=== PATIENT | female | born 1960 | race Caucasian/White ===

== ENCOUNTER 2023-12-20 13:41 | Inpatient (IN) | payer OTHER, SELFPAY ==
[2023-12-20] VITALS (10 sets, daily range): BP systolic 102–178; BP diastolic 54–102; PULSE 81–112; RESP 12–23; TEMP 36.7–36.9; O2SAT 94–99; BMI 36.8; BMI 37.8
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
[2023-12-20] MEDS: Ondansetron 4 MG/2 ML Vial IV (15:15)
[2023-12-20] MEDS: fentaNYL 100 MCG/2 ML Ampul 50 MCG IV (15:15)
[2023-12-20 15:19] LABS: Absolute Lymphocyte Count 1.53 X10^3/uL (0.83-4.51); Absolute Neutrophil Count 9.3 X10^3/uL (2.0-7.7); Basophil# 0.03 X10^3/uL; Basophil% 0.3 % (0-1); Eosinophils% 0.9 % (0-5); Hematocrit 38.8 % (37-47); Hemoglobin 12.7 g/dL (12.0-15.0); Lymphocyte # 1.53 X10^3/ul (0.83-4.51); Lymphocyte % 13.1 % (19-41); Mean Corp Hgb Conc 32.7 g/dL (32-36); Mean Corpuscular Hgb 28.6 pg (27.0-32.0); Mean Corpuscular Volume 87.4 fL (81-99); Mean Platelet Vol. 9.1 fl (6.2-12.0); Monocyte% 5.2 % (0-10); NRBC Flagged by Analyzer 0 % (0-5); Neutrophil # 9.33 X10^3/uL (2.7-7.7); Neutrophil % 80.1 % (47-70); Platelet Count 219 K/mm3 (150-450); RBC Distribution Width CV 14.5 % (11.6-14.6); RBC Distribution Width SD 45.7 fl (35.1-43.9); Red Blood Count 4.44 M/mm3 (4.2-5.4); White Blood Count 11.6 K/mm3 (4.4-11.0)
[2023-12-20 15:30] LABS: Anion Gap 5 (5-15); BUN 12 mg/dL (7-18); BUN/Creat Ratio 14.3 RATIO (10-20); Calcium,Total 9.4 mg/dL (8.5-10.1); Chloride 108 mmol/L (98-107); Creatinine, Serum 0.84 mg/dL (0.55-1.02); EST Glomerular Filtration Rate 73 mL/min (>60); Est Glom Filt Rate - Afr Amer 88 mL/min (>60); Estimated Creatinine Clearance 64.83 ml/min; Glucose 109 mg/dL (74-106); Potassium 3.9 mmol/L (3.5-5.1); Sodium Level 142 mmol/L (136-145)
[2023-12-20 15:54] LABS: International Normalized Ratio 1.1; Prothrombin Time (Protime)PT. 13.7 SECONDS (11.7-14.9)
[2023-12-20 15:55] LABS: Partial Thromboplast Time 29.2 Seconds (24.1-36.2)
[2023-12-20] MEDS: oxyCODONE 5 MG Tablet PO (16:55)
--- NOTE | 2023-12-20 17:42 | CT_ITS ---
CT LEFT LOWER EXTREMITY WITH 3-D IMAGING CLINICAL INDICATION: tibial plateau fx TECHNIQUE: Axial CT images of the LEFT lower extremity was performed IV contrast material. Coronal and sagittal reformats were provided. The protocol utilizes one or more of the following dose reduction techniques: automated exposure control, adjustment of mA and/or kV according to patient size,and/or use of iterative reconstruction technique. RADIATION DOSAGE (If Supplied By Facility): CTDIvol = ( 15.35 ) mGy, DLP = ( 430.52 ) mGycm COMPARISON: FINDINGS: Bones: There is an acute depressed fracture of the anterior lateral tibial plateau with more severe depression of the posterior tibial plateau with intra-articular extension of the fracture line. There is also a nondisplaced intra-articular fracture of the tibial spine No lytic or blastic osseous masses. Soft Tissues: There is hemorrhagic effusion noted within the suprapatella bursa. The superficial soft tissues are unremarkable without evidence of edema, hematoma, or foreign body. CT/Extremity Lower without Contra IMPRESSION: Acute depressed intra-articular fractures of the anterior and posterior lateral tibial plateaus with nondisplaced fracture of the tibial spine. Electronically Signed: Kar Isbell MD at 20:27 EDT ,
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
[2023-12-20] MEDS: Acetaminophen 500 MG Tablet 1000 MG PO (22:06)
[2023-12-20] MEDS: 0.9% Saline Lock 10 ML Syringe IV (22:06)
[2023-12-21] MEDS: oxyCODONE 5 MG Tablet PO ×2 (01:40→16:51)
[2023-12-21 01:45] VITALS: BP 143/71; PULSE 89; RESP 18; TEMP 36.7; O2SAT 94
[2023-12-21 05:20] VITALS: BP 131/69; PULSE 86; RESP 16; TEMP 36.6; O2SAT 96
[2023-12-21] MEDS: Acetaminophen 500 MG Tablet 1000 MG PO ×2 (05:23→16:51)
[2023-12-21] MEDS: Enoxaparin 40 MG/0.4 ML Syringe SC (05:23)
[2023-12-21 06:43] LABS: Absolute Lymphocyte Count 1.63 X10^3/uL (0.83-4.51); Absolute Neutrophil Count 4.8 X10^3/uL (2.0-7.7); Basophil# 0.03 X10^3/uL; Basophil% 0.4 % (0-1); Eosinophils% 1.4 % (0-5); Hematocrit 34.2 % (37-47); Hemoglobin 11.2 g/dL (12.0-15.0); Lymphocyte # 1.63 X10^3/ul (0.83-4.51); Lymphocyte % 22.8 % (19-41); Mean Corp Hgb Conc 32.7 g/dL (32-36); Mean Corpuscular Hgb 28.8 pg (27.0-32.0); Mean Corpuscular Volume 87.9 fL (81-99); Mean Platelet Vol. 9.6 fl (6.2-12.0); Monocyte# 0.56 X10^3/uL; Monocyte% 7.8 % (0-10); NRBC Flagged by Analyzer 0 % (0-5); Neutrophil # 4.82 X10^3/uL (2.7-7.7); Neutrophil % 67.5 % (47-70); Platelet Count 202 K/mm3 (150-450); RBC Distribution Width CV 14.8 % (11.6-14.6); Red Blood Count 3.89 M/mm3 (4.2-5.4); White Blood Count 7.2 K/mm3 (4.4-11.0)
[2023-12-21 06:51] VITALS: O2SAT 94
[2023-12-21 07:06] LABS: Anion Gap 5 (5-15); BUN 12 mg/dL (7-18); BUN/Creat Ratio 16.6 RATIO (10-20); Calcium,Total 8.8 mg/dL (8.5-10.1); Chloride 109 mmol/L (98-107); Creatinine, Serum 0.72 mg/dL (0.55-1.02); EST Glomerular Filtration Rate 86 mL/min (>60); Est Glom Filt Rate - Afr Amer 104 mL/min (>60); Estimated Creatinine Clearance 69.17 ml/min; Glucose 118 mg/dL (74-106); Potassium 3.9 mmol/L (3.5-5.1); Sodium Level 141 mmol/L (136-145)
[2023-12-21 11:20] VITALS: BP 136/66; PULSE 84; RESP 18; TEMP 36.4; O2SAT 96
[2023-12-21] MEDS: Pantoprazole Sodium 40 MG Tablet PO (11:23)
[2023-12-21] MEDS: Ketorolac 15 MG/ML Vial IV ×2 (11:27→21:29)
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
--- NOTE | 2023-12-21 14:39 | CASEMGMT ---
Patient did not do well with Physical Therapy and SNF is recommended. SW met with patient, her step daughter and granddaughter. Introduced self and role at [facility]. SW explained recommendation for SNF. Patient is agreeable, but not excited about the idea. SW provided patient with a list of [facility] facility providers including quality and resource use data and consistent with patient?s preferred geographic region, medical needs, and insurance network were provided from the CarePort Guide. SW asked that they pick 3-4 facilities and SW will take care of checking with those facilities to see if they can take patient. Mayra Snowden AUTOMATIC DEVELOPER RIYA
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
--- NOTE | 2023-12-21 15:07 | CASEMGMT ---
SW received a call from patient's granddaughter Claudia asking SW to come back to the room. SW went to patient's room. Their two choices for now are [facility] Should neither of those places work they will pick facilities outside of [place]. They were both adamant no [facility]. SW let them know SW will work on referral and once we have a response will let them know. SW did let them know SW will likely not hear back from [facility] today. SW asked Isabelle to please send a referral to [facility]. Mayra Snowden HSE COORDINATOR RIYA
--- NOTE | 2023-12-21 15:11 | CASEMGMT ---
Addendum entered by Isabelle Tello 12/23/23 08:13: Updates sent to [facility]. Precert remains pending. Isabelle Tello DC Planning Asst. Addendum entered by Isabelle Tello 12/22/23 13:53: [facility] has accepted. Updates sent with requested to submit precert. SW updated. Isabelle Tello DC Planning Asst. Original Note: Discharge Planning Referral sent via [facility]Port to [facility]. Isabelle Tello DC Planning Asst.
--- NOTE | 2023-12-21 16:29 | CASEMGMT ---
Met with patient to complete LOOMIS form. LOOMIS form explained to patient who voiced understanding and signed form. Original form placed in pt?s chart and copy provided to patient. Isabelle Tello, Discharge Planning Asst
[2023-12-21 17:00] VITALS: BP 147/99; PULSE 86; RESP 16; TEMP 36.9; O2SAT 97
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
[2023-12-21 21:00] VITALS: BP 146/69; PULSE 84; RESP 16; TEMP 36.2; O2SAT 94
[2023-12-21] MEDS: 0.9% Saline Lock 10 ML Syringe IV (21:30)
[2023-12-22 05:00] VITALS: BP 151/85; PULSE 77; RESP 18; TEMP 36.2; O2SAT 97
[2023-12-22] MEDS: Ketorolac 15 MG/ML Vial IV ×2 (05:46→17:03)
[2023-12-22] MEDS: Enoxaparin 40 MG/0.4 ML Syringe SC (05:46)
[2023-12-22] MEDS: 0.9% Saline Lock 10 ML Syringe IV ×2 (05:47→17:04)
[2023-12-22 08:15] VITALS: BP 146/58; PULSE 71; RESP 18; TEMP 36.6; O2SAT 97
[2023-12-22] MEDS: Pantoprazole Sodium 40 MG Tablet PO (10:09)
[2023-12-22] MEDS: Senna/Docusate Sodium 1 Tablet 2 TABLET PO (10:09)
[2023-12-22] MEDS: Acetaminophen 500 MG Tablet 1000 MG PO ×2 (14:59→22:34)
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
--- NOTE | 2023-12-22 15:37 | DCINST_ITS ---
Discharge Instructions Diet Discharge Diet: No restrictions Activity Discharge Activity: May Shower Weight Bearing Status: Toe touch weight bearing (left lower extremity with knee immobilizer at all times) Dressing / Incision Call your doctor if you observe: Fever of 101 or Higher, Dizziness, Swelling in the ankles, Chest pain, Increased palpitations (irregular heartbeat) and Calf discomfort Additional Dressing/Incision Instructions:: ok to remove Knee immobilizer for hygiene Follow Up Care When: [facility] Wednesday, December 27, 2023 Test Results: Test results from this visit will be discussed in further detail at your follow- up appointment, if applicable. Discharge Plan Admission Admit Date/Time: 12/24/23 09:48 Attending Provider: Flavio De La Rosa Primary Care Provider: Care PhysicianChantel Primary Discharge Orders/Prescriptions Prescriptions: New sennosides-docusate sodium [Stimulant Laxative Plus] 8.6-50 mg Tablet 2 tab PO BID Qty: 14 0RF enoxaparin 40 mg/0.4 mL Syringe 40 mg subcut DAILY@0600 Qty: 4 2RF oxycodone 5 mg Tablet 5 mg PO .q4-6 prn PRN (Reason: Pain Score 4-10) 7 Days Qty: 28 0RF acetaminophen 500 mg Tablet 1,000 mg PO Q8 Qty: 180 0RF enoxaparin [Lovenox] 40 mg/0.4 mL syringe 40 mg subcut DAILY 42 Days Qty: 16.8 0RF Continued omeprazole magnesium [Prilosec OTC] 20 mg tablet,delayed release (DR/EC) 20 mg PO DAILY Referrals / Follow Up: Care Physician,No Primary [Primary Care Provider] -
[2023-12-22 17:05] VITALS: BP 156/76; PULSE 78; RESP 16; TEMP 37; O2SAT 100
[2023-12-22 22:23] VITALS: BP 144/68; PULSE 80; RESP 16; TEMP 36.6; O2SAT 96
[2023-12-23 03:17] VITALS: BP 145/83; PULSE 87; RESP 16; TEMP 36.4; O2SAT 100
[2023-12-23] MEDS: Enoxaparin 40 MG/0.4 ML Syringe SC (05:50)
[2023-12-23] MEDS: Acetaminophen 500 MG Tablet 1000 MG PO ×3 (05:50→20:54)
--- NOTE | 2023-12-23 09:28 | CASEMGMT ---
Addendum entered by Mayra Snowden 12/23/23 14:22: SW completed a PASRR in [employer] system. Mayra RITTER Original Note: SW spoke with patient and her granddaughter. SW let them know [facility] is able to take patient. Currently we are waiting on insurance to approve patient. Plan: d/c to [facility] pending insurance approval. Mayra RITTER
[2023-12-23] MEDS: Pantoprazole Sodium 40 MG Tablet PO (09:39)
[2023-12-23] MEDS: Senna/Docusate Sodium 1 Tablet 2 TABLET PO ×2 (09:39→20:54)
[2023-12-23 09:41] VITALS: BP 148/86; PULSE 82; RESP 16; TEMP 36.3; O2SAT 100
[2023-12-23] MEDS: 0.9% Saline Lock 10 ML Syringe IV (11:13)
[2023-12-23] MEDS: Ketorolac 15 MG/ML Vial IV (11:13)
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
[2023-12-23 14:23] VITALS: BP 136/71; PULSE 75; RESP 16; TEMP 36.8; O2SAT 98
--- NOTE | 2023-12-23 14:36 | CASEMGMT ---
MARBELLA sent the discharge med list to [facility] [place]. Still pending insurance approval. Mayra Snowden CREAM SEPARATOR OPERATOR RIYA
[2023-12-23 20:45] VITALS: BP 160/72; PULSE 73; RESP 16; TEMP 36.9; O2SAT 99
[2023-12-23] MEDS: oxyCODONE 5 MG Tablet PO (20:54)
[2023-12-23] MEDS: Ondansetron 4 MG/2 ML Vial IV (20:55)
[2023-12-24] MEDS: Ondansetron 4 MG/2 ML Vial IV ×3 (03:12→21:43)
[2023-12-24] MEDS: Ketorolac 15 MG/ML Vial IV (03:13)
[2023-12-24 03:30] VITALS: BP 139/80; PULSE 90; RESP 16; TEMP 36.7; O2SAT 96
[2023-12-24] MEDS: Enoxaparin 40 MG/0.4 ML Syringe SC (05:59)
[2023-12-24] MEDS: 0.9% Saline Lock 10 ML Syringe IV ×3 (06:00→21:44)
[2023-12-24 08:17] VITALS: BP 138/81; PULSE 90; RESP 18; TEMP 36.7; O2SAT 95
[2023-12-24] MEDS: Acetaminophen 650 MG/20 ML UDC 1000 MG PO ×3 (08:39→21:43)
[2023-12-24] MEDS: Pantoprazole Sodium 40 MG Tablet PO (08:39)
[2023-12-24] MEDS: Polyethylene Glycol 3350 17 GM PACKET PO (08:40)
[2023-12-24] MEDS: Lactated Ringers 1,000 ML 125 ML IV (08:40)
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
--- NOTE | 2023-12-24 11:21 | CASEMGMT ---
MARBELLA sent updates to [facility] via [employer]. MARBELLA also let [facility] know that the physician said he is going to do surgery on Tuesday since the patient is still at [facility]. Mayra RITTER
--- NOTE | 2023-12-24 12:04 | CASEMGMT ---
RN CM notified by Orthopedic Surgeon he will plan to change status of patient to inpatient and plan for surgery on Tuesday. Notified SW and charge nurse.
[2023-12-24 13:00] VITALS: O2SAT 98
[2023-12-24 13:10] VITALS: BP 119/79; PULSE 88; RESP 18; TEMP 36.7; O2SAT 97
--- NOTE | 2023-12-24 14:06 | NURSING ---
attempt x2 right hand for iv, #20 and #22 unsucessful, charge aware and she is calling supervisor filtration for iv start after she could not get start either after x1 left
[2023-12-24 18:00] VITALS: PULSE 88
[2023-12-24] MEDS: Magnesium Hydroxide 30 ML UDC 15 ML PO (18:31)
[2023-12-24 21:39] VITALS: BP 133/75; PULSE 82; RESP 18; TEMP 37.1; O2SAT 100
[2023-12-25] MEDS: Acetaminophen 650 MG/20 ML UDC 1000 MG PO ×3 (06:05→21:50)
[2023-12-25] MEDS: Enoxaparin 40 MG/0.4 ML Syringe SC (06:05)
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
[2023-12-25 08:22] VITALS: BP 141/63; PULSE 74; RESP 18; TEMP 37.2; O2SAT 97
[2023-12-25 08:26] VITALS: PULSE 70
[2023-12-25] MEDS: Senna/Docusate Sodium 1 Tablet 2 TABLET PO ×2 (08:34→21:50)
[2023-12-25] MEDS: Pantoprazole Sodium 40 MG Tablet PO (08:35)
[2023-12-25] MEDS: Magnesium Hydroxide 30 ML UDC PO (10:21)
[2023-12-25 14:36] VITALS: BP 137/82; PULSE 89; PULSE 90; RESP 18; TEMP 37.5; O2SAT 97
[2023-12-25] MEDS: Ondansetron 4 MG/2 ML Vial IV (21:59)
[2023-12-25] MEDS: 0.9% Saline Lock 10 ML Syringe IV (21:59)
[2023-12-25 22:00] VITALS: BP 138/67; PULSE 78; RESP 18; TEMP 35.8; O2SAT 97
[2023-12-26] VITALS (19 sets, daily range): BP systolic 121–180; BP diastolic 54–102; PULSE 77–136; RESP 16–18; TEMP 35.7–36.9; O2SAT 97–100; BMI 37.8
--- NOTE | 2023-12-26 05:55 | EKG12_ITS ---
Test Reason : AM EKG Blood Pressure : */* mmHG Vent. Rate : 81 BPM Atrial Rate : 81 BPM P-R Int : 142 ms QRS Dur : 76 ms QT Int : 402 ms P-R-T Axes : 44 29 64 degrees QTcB Int : 466 ms Normal sinus rhythm Normal ECG When compared with ECG of 20-Dec-2023 15:14, No significant change was found Confirmed by Joesph Pandya ([id number]), newspaper copy editor ROGER FORRESTER ([id number]) on 12/27/2023 9:26:14 AM Referred By: Flavio De La Rosa Confirmed By: Joesph Pandya
[2023-12-26 06:06] LABS: Absolute Lymphocyte Count 1.26 X10^3/uL (0.83-4.51); Absolute Neutrophil Count 4.8 X10^3/uL (2.0-7.7); Basophil# 0.02 X10^3/uL; Basophil% 0.3 % (0-1); Eosinophil# 0.22 X10^3/uL; Eosinophils% 3.3 % (0-5); Hematocrit 34.4 % (37-47); Hemoglobin 11.1 g/dL (12.0-15.0); Lymphocyte # 1.26 X10^3/ul (0.83-4.51); Lymphocyte % 18.7 % (19-41); Mean Corp Hgb Conc 32.3 g/dL (32-36); Mean Corpuscular Hgb 28.7 pg (27.0-32.0); Mean Corpuscular Volume 88.9 fL (81-99); Mean Platelet Vol. 9.4 fl (6.2-12.0); Monocyte# 0.48 X10^3/uL; Monocyte% 7.1 % (0-10); NRBC Flagged by Analyzer 0 % (0-5); Neutrophil # 4.75 X10^3/uL (2.7-7.7); Neutrophil % 70.3 % (47-70); Platelet Count 201 K/mm3 (150-450); RBC Distribution Width CV 14.6 % (11.6-14.6); RBC Distribution Width SD 46.5 fl (35.1-43.9); Red Blood Count 3.87 M/mm3 (4.2-5.4); White Blood Count 6.8 K/mm3 (4.4-11.0)
[2023-12-26 06:11] LABS: International Normalized Ratio 1.1; Prothrombin Time (Protime)PT. 14.1 SECONDS (11.7-14.9)
[2023-12-26 06:12] LABS: Partial Thromboplast Time 31.7 Seconds (24.1-36.2)
[2023-12-26] MEDS: Acetaminophen 650 MG/20 ML UDC 1000 MG PO ×2 (06:36→21:17)
[2023-12-26] MEDS: Ondansetron 4 MG/2 ML Vial IV ×2 (06:36→21:39)
[2023-12-26] MEDS: 0.9% Saline Lock 10 ML Syringe IV (06:36)
[2023-12-26 08:03] LABS: Vitamin D,25 Hydroxy 32.9 ng/mL
--- NOTE | 2023-12-26 09:18 | CASEMGMT ---
Patient was approved for [facility]. SW did let Rubi know that patient will now be having surgery while at [facility]. Per [facility] patient is good to admit through 12-29. Plan: d/c to [facility] when medically ready. Insurance has approved and authorization is good through 12-29. Mayra Snowden SUSHI CHEF RIYA
--- NOTE | 2023-12-26 09:51 | CASEMGMT ---
MARBELLA met with patient and her family. MARBELLA let them know that patient was approved by insurance so whenever she is medically ready we will get her moved to [facility]. They thanked MARBELLA for the update. Mayra RITTER
--- NOTE | 2023-12-26 12:42 | PCM.PRE.AN2 ---
ASA Classification* ASA Classification ASA Classification: 3 Assessment & Plan Anesthesia* Anesthesia Assessment Anesthesia Assessment: Discussed sedation and/or anesthesia options, risks, benefits, and alternatives with patient/parents/legal guardian/POA. Questions invited. The patient/parents/legal guardian/POA seems to understand and agrees to proceed with anesthesia plan. Reviewed the physical assessment, medical history, allergy history and patient home medications list prior to surgery/procedure/anesthetic and documented any changes. Performed airway and anesthesia risk assessments. Anesthesia Type Anesthesia Type: General (Consider GlideScope.) History Source History Obtained from:: Patient and Chart Anesthesia Focused Assessment* Temperature: 97.4 F Pulse Rate: 78 Blood Pressure: 129/63 Respiratory Rate: 18 Pulse Ox: 100 Oxygen Delivery Method: Room Air Airway Assessment Mouth opens: >3 cm Mallampati Score: IV Teeth Condition: Missing (Multiple missing teeth. Rest are tight.) Neck Range of motion (ROM): Limited ROM Focused Labs Anesthesia Preop lab: CBC WBC 6.8 K/mm3 (4.4-11.0) 12/26/23 05:16 RBC 3.87 M/mm3 (4.2-5.4) L 12/26/23 05:16 Hgb 11.1 g/dL (12.0-15.0) L 12/26/23 05:16 Hct 34.4 % (37-47) L 12/26/23 05:16 Plt Count 201 K/mm3 (150-450) 12/26/23 05:16 CHEMISTRY Potassium 3.9 mmol/L (3.5-5.1) 12/21/23 05:48 Sodium 141 mmol/L (136-145) 12/21/23 05:48 BUN 12 mg/dL (7-18) 12/21/23 05:48 Creatinine 0.72 mg/dL (0.55-1.02) 12/21/23 05:48 Glucose 118 mg/dL (74-106) H 12/21/23 05:48 COAG PT 14.1 SECONDS (11.7-14.9) 12/26/23 05:16 Pre-Assessment Diagnosis/Proposed Procedure Planned Operative Procedure(s): Open reduction internal fixation lateral tibial plateau. 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 When Was Last Pacemaker Check no 12/26/23 11:43 QUESTION #4 FULL TEXT: You/Your Family Experience fever (hyperthermia) with Anesthesia Last Oral Intake Last Oral intake: Last Oral Intake NPO since 07:00 12/26/23 11:37 Meds taken in AM with sips of water? Meds patient instructed to take am of surgery Any additional information?: Yes NPO since: 07:00 Meds taken in AM with sips of water?: Yes PONV PONV - world history teacher: PONV - world history teacher Female HX of Motion Sickness HX of N/V After Surgery Non-Smoker Duration of Surgery greater than 60 minutes Number of Risk Factors PONV Score Height & Weight Height & Weight: Anesthesia: Height & Weight Height 5 ft 12/26/23 11:37 Weight: 88 kg 12/26/23 11:37 Body Mass Index (BMI) 37.8 12/26/23 11:37 Respiratory Assessment Respiratory Assessment - world history teacher: Respiratory Tract Infection Hx - world history teacher Hx Respiratory Tract Infection No 12/26/23 11:43 STOP Sleep Apnea STOP Sleep Apnea - world history teacher: STOP Sleep Apnea - world history teacher Hx Hypertension No 12/22/23 16:37 Hx Sleep Apnea No 12/20/23 20:24 CPAP BIPAP Do you snore loudly (louder No 12/20/23 20:24 than talking or can be heard Do you often feel tired/ No 12/20/23 20:24 fatigued/ sleepy during daytime? Has anyone observed you stop No 12/20/23 20:24 breathing during sleep? STOP Results Negative 12/20/23 20:24 QUESTION #5 FULL TEXT : Do you snore loudly (louder than talking or can be heard through closed doors)? 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 Specify any problems Hx of Preganancy in last 3 No 12/20/23 20:24 Months Nurse Filling Out Transfusion MGROVE 12/20/23 20:24 & Questions: Date: 12/20/23 12/20/23 20:24 Time: 21:47 12/20/23 20:24 Patient unable to answer at this time (ie. confused, unrespo /Reproduction History /Reproductive History - world history teacher: /Reproductive Hx- world history teacher Hx Now No 12/26/23 11:43 Gestational Age (in weeks): EDC: Hx Hx Para Hx Section SAB Active Medications Active Medications: Current Medications Generic Name Dose Route Start Last Admin Trade Name Freq PRN Reason Stop Dose Admin Acetaminophen 1,000 mg 12/24/23 08:15 12/26/23 06:36 Acetaminophen 650 Mg/20 Ml Udc PO 1,000 mg Q8 SHERON Administration Enoxaparin Sodium 40 mg 12/21/23 06:00 12/25/23 06:05 Enoxaparin 40 Mg/0.4 Ml Syringe SC 40 mg DAILY@0600 SHERON Administration Sodium Chloride 500 mls @ 15 mls/hr 12/20/23 21:42 IV .[id number] PRN Saline Flush Sodium Chloride 500 mls @ 15 mls/hr 12/20/23 21:42 IV .[id number] PRN Additional IVPB Infusion Lactated Ringer's 1,000 mls @ 100 mls/hr 12/26/23 07:30 IV 12/27/23 03:29 .Q10H SHERON Protocol Ondansetron HCl 4 mg 12/23/23 20:08 12/26/23 06:36 Ondansetron 4 Mg/2 Ml Vial IV 4 mg Q6H PRN PRN Administration NAUSEA Oxycodone HCl 5 mg 12/20/23 21:02 12/23/23 20:54 Oxycodone 5 Mg Tablet PO 5 mg Q4H PRN PRN Administration Pain Score 4-10 Pantoprazole Sodium 40 mg 12/21/23 10:00 12/26/23 11:10 Pantoprazole Sodium 40 Mg Tablet PO Not Given DAILY SHERON Senna/Docusate Sodium 2 tablet 12/21/23 22:00 12/26/23 11:11 Senna/Docusate Sodium 1 Tablet PO Not Given BID SHERON Sodium Chloride 10 - 40 ml 12/20/23 21:42 12/26/23 06:36 0.9% Saline Lock 10 Ml Syringe IV 20 ml UD PRN Administration SALINE FLUSH [facility] Medical History (Updated 12/26/23 @ 12:[address] Gonzalo Maynard MD) Reflux esophagitis Arthritis Home Medications ?Medication ?Instructions ?Recorded ?Last Taken ?Type omeprazole magnesium 20 mg 20 mg PO DAILY GERD 12/20/23 12/19/23 History tablet,delayed release (Prilosec OTC) acetaminophen 500 mg tablet 1,000 mg (2 x 500 mg) PO Q8 #180 12/22/23 Unknown Rx tabs enoxaparin 40 mg/0.4 mL 40 mg (0.4 mL) subcut DAILY@0600 12/22/23 Unknown Rx subcutaneous syringe #4 mL oxycodone 5 mg tablet 5 mg PO .q4-6 prn PRN Pain Score 12/22/23 Unknown Rx 4-10 7 days #28 tabs sennosides 8.6 mg-docusate sodium 2 tab PO BID #14 tabs 12/22/23 Unknown Rx 50 mg tablet (Stimulant Laxative Plus) Allergy/AdvReac Type Severity Reaction Status Date / Time No Known Allergies Allergy Verified 12/20/23 13:58 Surgical History History of cholecystectomy Social History Smoking Status: Never smoker Review of Systems (Anesthesia) ROS Narrative System reviewed and no additional complaints, except as documented.
--- NOTE | 2023-12-26 13:00 | RAD_ITS ---
INDICATION: TIBIAL PLATEAU FX EXAMINATION/TECHNIQUE: X-RAY - LEFT XR Tibia/Fibula 2 Views 7 VIEWS COMPARISON: CT scan of the knee of 12/20/2023 FINDINGS: Intraoperative views of the knee were obtained for open reduction internal fixation of a fracture of the lateral tibial plateau fixed with sideplate and screws. Images were obtained for documentation. Number of fluoroscopic images: 6 Fluoroscopy time: 49 seconds. Radiation dose: 3.23 mGy. RAD/Tibia & Fibula 2 Views IMPRESSION: Intraoperative exam as described above. Electronically Signed: Jan Sanders MD at 15:50 EST ,
[2023-12-26] MEDS: Cefazolin 2 GM in Syringe IV (13:49)
[2023-12-26] MEDS: Bupiv/Epi 0.25% 30 ML Vial (15:22)
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
--- NOTE | 2023-12-26 15:54 | PCM.POST.ANE ---
Anesthesia: Postop Eval I Current Vital Signs Temperature: 97.7 F Pulse Rate: 102 Blood Pressure: 166/97 Respiratory Rate: 16 Pulse Ox: 100 Oxygen Delivery Method: Simple Mask Oxygen Flow Rate (L/min): 6 Assessment Airway patent: Yes Spontaneous unlabored respirations: Yes Mental status: Awake and Calm nausea: No Vomiting: No Anesthesia Complication: No Fluid Hydration Crystalloid volume administer (ml): 1,000 Total IV fluid infused: 1,000 Progress Note Anesthesia document: Postop Eval 1 completed: Yes
--- NOTE | 2023-12-26 16:30 | SUR.PHASEI ---
OCCASIONAL MOAN, C/O PAIN BUT THEN WHEN ASKED TO RATE PAIN, UNABLE STATING, IT'S NOT TOO BAD. FALLS BACK TO SLEEP QUICKLY, SNORING.
--- NOTE | 2023-12-26 16:35 | SUR.PHASEI ---
NOTIFIED DR WHATLEY, ANESTHESIA, THAT PATIENT INCREASINGLY TACHYCARDIC WHILE IN PACU. HR WAS IN 100'S ON PACU ARRIVAL, NOW 120-140'S. UNABLE TO SEE CARDIAC HISTORY. DR WHATLEY NOTED.
[2023-12-26] MEDS: Lactated Ringers 1,000 ML 100 ML IV ×2 (17:06→17:44)
[2023-12-26] MEDS: Cefazolin 1 GM/50 ML BAG IV (21:16)
[2023-12-26] MEDS: Senna/Docusate Sodium 1 Tablet 2 TABLET PO (21:18)
[2023-12-26] MEDS: oxyCODONE 5 MG Tablet PO (21:18)
[2023-12-27 01:38] VITALS: BP 130/65; PULSE 78; RESP 18; TEMP 35.8; O2SAT 95
[2023-12-27] MEDS: oxyCODONE 5 MG Tablet PO ×5 (02:01→23:41)
[2023-12-27] MEDS: Cefazolin 1 GM/50 ML BAG IV (05:00)
[2023-12-27] MEDS: Acetaminophen 650 MG/20 ML UDC 1000 MG PO ×3 (05:11→20:29)
[2023-12-27 05:38] VITALS: BP 157/67; PULSE 82; RESP 18; TEMP 35.7; O2SAT 95
[2023-12-27] MEDS: Enoxaparin 40 MG/0.4 ML Syringe SC (06:06)
[2023-12-27 06:15] LABS: Hematocrit 30.9 % (37-47); Mean Corp Hgb Conc 32.4 g/dL (32-36); Mean Corpuscular Hgb 29.7 pg (27.0-32.0); Mean Corpuscular Volume 91.7 fL (81-99); Mean Platelet Vol. 10.4 fl (6.2-12.0); Platelet Count 191 K/mm3 (150-450); RBC Distribution Width CV 14.5 % (11.6-14.6); RBC Distribution Width SD 47.9 fl (35.1-43.9); Red Blood Count 3.37 M/mm3 (4.2-5.4); White Blood Count 9.1 K/mm3 (4.4-11.0)
[2023-12-27 08:04] VITALS: BP 135/86; PULSE 77; RESP 15; TEMP 37.1; O2SAT 96
[2023-12-27] MEDS: Senna/Docusate Sodium 1 Tablet 2 TABLET PO (08:15)
[2023-12-27] MEDS: Pantoprazole Sodium 40 MG Tablet PO (08:15)
--- NOTE | 2023-12-27 09:05 | CASEMGMT ---
MARBELLA received a message to call Eula Boateng ([phone] and [phone]) with [place] [employer]. MARBELLA called Eula and asked if this was going to be a Worker's Comp claim. Eula thought it was, but is not sure. She is not the one who makes this determination. Eula said she is more of a patient advocate. Eula told MARBELLA that [facility]'s tool adjuster is Zeny Bloom ([phone] [id number] [phone]). Zeny is the one that will determine if this is a Worker's Comp claim or not. MARBELLA called Zeny and left her a voice mail requesting a return call. Mayra RITTER
[2023-12-27 10:05] LABS: Anion Gap 9 (5-15); BUN 19 mg/dL (7-18); BUN/Creat Ratio 23.4 RATIO (10-20); Calcium,Total 8.7 mg/dL (8.5-10.1); Chloride 106 mmol/L (98-107); Creatinine, Serum 0.81 mg/dL (0.55-1.02); EST Glomerular Filtration Rate 75 mL/min (>60); Est Glom Filt Rate - Afr Amer 91 mL/min (>60); Estimated Creatinine Clearance 68.32 ml/min; Glucose 156 mg/dL (74-106); Potassium 4.4 mmol/L (3.5-5.1); Sodium Level 140 mmol/L (136-145)
--- NOTE | 2023-12-27 11:22 | CASEMGMT ---
MARBELLA attempted to call Zeny with [employer] claims and it went to right to voice mail again. Mayra Snowden BOAT MASTER RIYA
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
[2023-12-27] MEDS: Ondansetron 4 MG/2 ML Vial IV (12:42)
[2023-12-27] MEDS: 0.9% Saline Lock 10 ML Syringe IV (12:42)
[2023-12-27] MEDS: BENZOCAINE/MENTHOL 1 LOZENGE MUCOUS MEM ×3 (12:44→22:42)
--- NOTE | 2023-12-27 12:45 | CASEMGMT ---
MARBELLA called Zeny with [employer] claims and left her another voice mail. MARBELLA let her know patient has been approved by her [place] to go to the group home facility. MARBELLA let Zeny know that patient is ready for discharge. MARBELLA said feedback would be much appreciated so we know how to proceed. Mayra RITTER
[2023-12-27] MEDS: Magnesium Citrate 300 ML 150 ML PO (13:12)
--- NOTE | 2023-12-27 15:29 | CASEMGMT ---
MARBELLA received a return call from [facility] with [employer] claims. Zeny said they are going to cover patient's case under Worker's Comp. MARBELLA explained to [facility] that [facility] was not aware of this so SW went through patient's health insurance to get approval for [facility]. Patient has been approved for the [facility]. MARBELLA asked [facility] if [facility] can discharge patient to the [facility] or does approval now have to come from Worker's Comp. Zeny said she is going to check on a few things and then get back to . MARBELLA updated patient on the conversation with Zeny at [employer]'s [employer]. Plan: At this time MARBELLA is unsure if patient can be discharged under her health insurance since [facility] as a Worker's Comp claim. Approval may need to come from Worker's Comp as well as completion of Worker's Comp paperwork. Mayra Snowden DIRECTOR REGULATORY COMPLIANCE RIYA
[2023-12-27 16:23] VITALS: BP 152/66; PULSE 78; RESP 15; TEMP 36.8; O2SAT 96
[2023-12-27 22:00] VITALS: BP 134/59; PULSE 89; RESP 18; TEMP 35.7; O2SAT 100
[2023-12-28 04:00] VITALS: BP 145/75; PULSE 88; RESP 18; TEMP 35.3; O2SAT 97
[2023-12-28] MEDS: Acetaminophen 650 MG/20 ML UDC 1000 MG PO ×2 (05:37→13:14)
[2023-12-28] MEDS: Enoxaparin 40 MG/0.4 ML Syringe SC (05:38)
[2023-12-28] MEDS: Senna/Docusate Sodium 1 Tablet 2 TABLET PO (08:49)
[2023-12-28] MEDS: Pantoprazole Sodium 40 MG Tablet PO (08:50)
--- NOTE | 2023-12-28 09:11 | CASEMGMT ---
MARBELLA received a voice mail from [facility] Zeny said they do not want to delay patient's discharge so go ahead and send patient to the group home and they will work things out on the back end. They will work with the facility on rates. Zeny did ask that SW send her C9's, UB04 or CMS 1500, and the information on the facility patient will be going to. The only issue with this is that not all nursing homes take Worker's Comp claims. MARBELLA is checking with [facility] to see if they are still willing to take patient. Rubi at [facility] said she will check with administration and get back to . Await [facility]'s response. Mayra Snowden [employer] ASSISTANT
--- NOTE | 2023-12-28 09:14 | POSTOPAN2_ITS ---
Anesthesia Postop Eval I Sum Postop Eval Completion status Anesthesia document: Postop Eval 1 completed: Yes Anesthesia Postop Eval I Summary Anesthesia Postop Eval I Summary: Anesthesia Postop Eval I: Assessment Summary Airway patent Yes 12/26/23 15:58 INFORMATION SYSTEMS SPECIALIST.[email or web address] Spontaneous unlabored Yes 12/26/23 15:58 INFORMATION SYSTEMS SPECIALIST.MELI respirations Mental status Awake,Calm 12/26/23 15:58 INFORMATION SYSTEMS SPECIALIST.SKOBY nausea No 12/26/23 15:58 INFORMATION SYSTEMS SPECIALIST.SKOBY Vomiting No 12/26/23 15:58 INFORMATION SYSTEMS SPECIALIST.SKOBGurwinder Anesthesia Postop Eval I: Fluid Summary Crystalloid volume administer 1,000 12/26/23 15:58 INFORMATION SYSTEMS SPECIALIST.SKOBY (ml) Colloids volume administered ( ml) Blood Product volume administered (ml) Total IV fluid infused 1,000 12/26/23 15:58 INFORMATION SYSTEMS SPECIALIST.KARENOBGurwinder Anesthesia Postop Eval I: Summary Notes Anesthesia Complication No 12/26/23 15:58 INFORMATION SYSTEMS SPECIALIST.KARENOBGurwinder Anesthesia Complication Comment: Post-operative progress note Anesthesia: Postop Eval II Evaluation Mental status: Awake and Calm Pain Level: 1 nausea: No Vomiting: No Complications Anesthesia Complication: No
--- NOTE | 2023-12-28 09:14 | PCM.POSTANE2 ---
Anesthesia Postop Eval I Sum Postop Eval Completion status Anesthesia document: Postop Eval 1 completed: Yes Anesthesia Postop Eval I Summary Anesthesia Postop Eval I Summary: Anesthesia Postop Eval I: Assessment Summary Airway patent Yes 12/26/23 15:58 LEVEL VIAL CURVATURE GAUGER.[email or web address] Spontaneous unlabored Yes 12/26/23 15:58 LEVEL VIAL CURVATURE GAUGER.MELI respirations Mental status Awake,Calm 12/26/23 15:58 LEVEL VIAL CURVATURE GAUGER.SKOBY nausea No 12/26/23 15:58 LEVEL VIAL CURVATURE GAUGER.SKOBY Vomiting No 12/26/23 15:58 LEVEL VIAL CURVATURE GAUGER.SKOBGurwinder Anesthesia Postop Eval I: Fluid Summary Crystalloid volume administer 1,000 12/26/23 15:58 LEVEL VIAL CURVATURE GAUGER.SKOBY (ml) Colloids volume administered ( ml) Blood Product volume administered (ml) Total IV fluid infused 1,000 12/26/23 15:58 LEVEL VIAL CURVATURE GAUGER.KARENOBGurwinder Anesthesia Postop Eval I: Summary Notes Anesthesia Complication No 12/26/23 15:58 LEVEL VIAL CURVATURE GAUGER.KARENOBGurwinder Anesthesia Complication Comment: Post-operative progress note Anesthesia: Postop Eval II Evaluation Mental status: Awake and Calm Pain Level: 1 nausea: No Vomiting: No Complications Anesthesia Complication: No
[2023-12-28] MEDS: Ondansetron 4 MG/2 ML Vial IV (09:15)
[2023-12-28 10:00] VITALS: BP 128/71; PULSE 90; RESP 16; TEMP 36.9; O2SAT 100
--- NOTE | 2023-12-28 10:34 | CASEMGMT ---
[facility] did get back to and they will still take patient. MARBELLA thanked Rubi at [facility]. MARBELLA will work on completing necessary Worker's Comp forms. MARBELLA also placed a call to Velma at [facility] who handles Worker's Comp claims. Mayra Snowden VENEER REDRIER RIYA
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
--- NOTE | 2023-12-28 12:38 | PHA.DC.MR.R ---
Pharmacy [place] Med Reconciliation Pharmacy Service has performed discharge medication reconciliation for this patient. The patient's discharge medication list was reviewed for discrepancies and discrepancies were resolved. Medications at Discharge Home Medications omeprazole magnesium 20 mg tablet,delayed release (Prilosec OTC) 20 mg PO DAILY GERD 12/20/23 acetaminophen 500 mg tablet 1,000 mg (2 x 500 mg) PO Q8 #180 tabs 12/22/23 oxycodone 5 mg tablet 5 mg PO .q4-6 prn PRN Pain Score 4-10 7 days #28 tabs 12/22/23 sennosides 8.6 mg-docusate sodium 50 mg tablet (Stimulant Laxative Plus) 2 tab PO BID #14 tabs 12/22/23 enoxaparin 40 mg/0.4 mL subcutaneous syringe (Lovenox) 40 mg (0.4 mL) subcut DAILY 6 weeks #16.8 mL 12/27/23
--- NOTE | 2023-12-28 12:43 | CASEMGMT ---
MARBELLA received a return call from Velma with [facility]. Velma said she will take care of the C9 for the hospitalization/surgery and she will complete the [employer] form. MARBELLA gave Callie Carreon phone and fax numbers from [employer]. SW completed a PASRR in [facility] system. Patient is ready for discharge to [place]. MARBELLA notified patient and her granddaughter. Patient completed her portion of the First Report of Injury for [employer]. Plan: d/c to [place] under skilled level of care on a PASRR. Physicians will transport patient via cot. MARBELLA will communicate with Eula from [employer] and Callie with [employer]. Mayra RITTER
--- NOTE | 2023-12-28 12:53 | CASEMGMT ---
Discharge Planning Discharge orders, signed med list, and transport time sent to [facility] via [facility]. Physicians will transport patient by cot at 2p. Nursing, SW, patient, and her granddaughter (Claudia) updated. Isabelle Tello DC Planning Asst.
--- NOTE | 2023-12-28 13:20 | NURSING ---
This nurse spoke with Nicky at [facility] and report given at this time.
[2023-12-28 14:35] VITALS: BP 126/70; PULSE 88; RESP 17; TEMP 37; O2SAT 99
--- NOTE | 2023-12-29 14:26 | CASEMGMT ---
MARBELLA received a call from Velma with [facility]. She notified MARBELLA that she completed all of the necessary C9's and [employer] 14 and she sent them to [facility] with [employer]. Velma will fax this information to MARBELLA when she receives it back. ED Director will obtain ED Physician signature for the First Report of Injury form and submit it to medical records and [facility] with [employer]. Mayra RITTER
== END 2023-12-28 14:41 | disposition skilled nursing facility (03) | DRG 494 ==
LOC: ED 17:52 → PCU 19:02
PROVIDERS: Anesthesiology; Admitting Provider Student in an Organized Health Care Education/Training Program; Emergency Provider Emergency Medicine; Referring Provider Student in an Organized Health Care Education/Training Program; Visit Provider Student in an Organized Health Care Education/Training Program
PROC: 0QSH04Z Reposition Left Tibia with Internal Fixation Device, Open Approach (ICD-10-PCS; principal; 2023-12-26 07:45)
DX: S82.145A Nondisplaced bicondylar fracture of left tibia, initial encounter for closed fracture (principal); S83.282A Other tear of lateral meniscus, current injury, left knee, initial encounter; V40.2XXA Person on outside of car injured in collision with pedestrian or animal in nontraffic accident, initial encounter
CPT/HCPCS: 36415; 70450; 71260; 72125; 72170; 73552; 73560; 73590; 73700; 74177; 76000; 80048; 82306; 85025; 85027; 85610; 85730; 93005; 94668; 97110; 97116; 97162; 97166; 97530; 97535; 99285; C1713; C1776; J7120; Q9967; A4216; J2405

== ENCOUNTER → 2024-01-18 | Outpatient (REF) | payer OTHER, SELFPAY ==
[2024-01-18 08:33] LABS: Absolute Lymphocyte Count 1.32 X10^3/uL (0.83-4.51); Absolute Neutrophil Count 3.4 X10^3/uL (2.0-7.7); Basophil# 0.02 X10^3/uL; Basophil% 0.4 % (0-1); Eosinophil# 0.16 X10^3/uL; Hemoglobin 10.9 g/dL (12.0-15.0); Lymphocyte # 1.32 X10^3/ul (0.83-4.51); Lymphocyte % 24.7 % (19-41); Mean Corp Hgb Conc 32.1 g/dL (32-36); Mean Corpuscular Hgb 28.8 pg (27.0-32.0); Mean Corpuscular Volume 89.9 fL (81-99); Mean Platelet Vol. 9.4 fl (6.2-12.0); Monocyte# 0.41 X10^3/uL; Monocyte% 7.7 % (0-10); NRBC Flagged by Analyzer 0 % (0-5); Neutrophil # 3.41 X10^3/uL (2.7-7.7); Neutrophil % 63.8 % (47-70); Platelet Count 198 K/mm3 (150-450); RBC Distribution Width CV 14.8 % (11.6-14.6); RBC Distribution Width SD 48.5 fl (35.1-43.9); Red Blood Count 3.78 M/mm3 (4.2-5.4); White Blood Count 5.3 K/mm3 (4.4-11.0)
[2024-01-18 09:21] LABS: Hemoglobin A1c 4.7 % (3.8-5.6)
[2024-01-18 09:24] LABS: Anion Gap 5 (5-15); BUN 19 mg/dL (7-18); Calcium,Total 9.3 mg/dL (8.5-10.1); Chloride 111 mmol/L (98-107); Cholesterol 196 mg/dL (200); Creatinine, Serum 0.68 mg/dL (0.55-1.02); EST Glomerular Filtration Rate 92 mL/min (>60); Est Glom Filt Rate - Afr Amer 112 mL/min (>60); Glucose 116 mg/dL (74-106); High Density Lipoprotein 43 mg/dL; Magnesium 2.1 mg/dL (1.6-2.6); Potassium 3.6 mmol/L (3.5-5.1); Sodium Level 143 mmol/L (136-145); Triglycerides 180 mg/dL; Very Low Density Lipoprotein 36 mg/dL (5-40)
[2024-01-18 09:54] LABS: Vitamin B12 357 pg/mL (211-911); Vitamin D,25 Hydroxy 40.5 ng/mL
== END ==
LOC: OLS.SW 04:00
PROVIDERS: Referring Provider Internal Medicine; Visit Provider Internal Medicine
DX: E78.5 Hyperlipidemia, unspecified (principal); E03.9 Hypothyroidism, unspecified; D62 Acute posthemorrhagic anemia; M62.562 Muscle wasting and atrophy, not elsewhere classified, left lower leg; S82.142D Displaced bicondylar fracture of left tibia, subsequent encounter for closed fracture with routine healing; S76.391D Other specified injury of muscle, fascia and tendon of the posterior muscle group at thigh level, right thigh, subsequent encounter
CPT/HCPCS: 36415; 80048; 80061; 82306; 82607; 83036; 83735; 84443; 85025

== ENCOUNTER → 2024-03-29 | Outpatient (CLI) | payer OTHER, MEDICARE, SELFPAY ==
--- NOTE | 2024-03-29 16:50 | CT_ITS ---
PROCEDURE: Noncontrast CT of the left foot/ankle. REASON FOR EXAM: Displaced fracture lateral tibial condyle. Left foot fracture for 3 months. TECHNIQUE: Contiguous unenhanced axial CT images were obtained through the left foot/ankle. Sagittal and coronal reformats were created. COMPARISON: None available FINDINGS: There is diffuse induration of the soft tissues and subcutaneous fat of the left foot/ankle. There are some scattered nonspecific calcifications of the subcutaneous fat left ankle. No discrete soft tissue mass or drainable fluid collection on the provided noncontrast images. The included distal tibia and fibula are intact. No displaced fracture of the left foot/ankle. The nonweightbearing alignment of the tarsal bones appears maintained. Mild degenerative changes of the interphalangeal and MTP joints. Moderate soft tissue swelling of the left foot. There is some cortical irregularity and peripheral lucency of the dorsal proximal 1st metatarsal. CT/Extremity Lower without Contra IMPRESSION: Osteopenia. There is some lucency and cortical irregularity of the dorsal prox imal 1st metatarsal, which could represent an age-indeterminate nondisplaced fracture. No other findings suspicious for left foot fracture. If there are persistent pain or clinical concern, MRI evaluation may be helpful. Moderate soft tissue swelling and induration of the soft tissues/subcutaneous f at of the left foot, which could be due to cellulitis. One or more dose reduction techniques were used (e.g., Automated exposure contr ol, adjustment of the mA and/or kV according to patient size, use of iterative reconstruction technique). Reading Location: [id number]
== END | disposition home or self-care (01) ==
LOC: CT 16:49
PROVIDERS: Referring Provider Physician Assistant Surgical; Visit Provider Physician Assistant Surgical
DX: S82.122D Displaced fracture of lateral condyle of left tibia, subsequent encounter for closed fracture with routine healing (principal)
CPT/HCPCS: 73700

== ENCOUNTER → 2024-08-02 | Outpatient (CLI) | payer MEDICARE, BC, SELFPAY ==
[2024-08-02 15:56] LABS: Absolute Lymphocyte Count 1.72 X10^3/uL (0.83-4.51); Absolute Neutrophil Count 4.6 X10^3/uL (2.0-7.7); Basophil# 0.02 X10^3/uL; Basophil% 0.3 % (0-1); Eosinophil# 0.13 X10^3/uL; Eosinophils% 1.9 % (0-5); Hematocrit 37.9 % (37-47); Hemoglobin 12.4 g/dL (12.0-15.0); Lymphocyte # 1.72 X10^3/ul (0.83-4.51); Lymphocyte % 24.9 % (19-41); Mean Corp Hgb Conc 32.7 g/dL (32-36); Mean Corpuscular Volume 85.6 fL (81-99); Mean Platelet Vol. 9.9 fl (6.2-12.0); Monocyte# 0.46 X10^3/uL; Monocyte% 6.7 % (0-10); NRBC Flagged by Analyzer 0 % (0-5); Neutrophil # 4.55 X10^3/uL (2.7-7.7); Neutrophil % 65.8 % (47-70); Platelet Count 225 K/mm3 (150-450); RBC Distribution Width CV 14.5 % (11.6-14.6); RBC Distribution Width SD 44.3 fl (35.1-43.9); Red Blood Count 4.43 M/mm3 (4.2-5.4); White Blood Count 6.9 K/mm3 (4.4-11.0)
[2024-08-02 16:30] LABS: ALB/GLOB Ratio 1.2 RATIO (0.9-2.4); AST(SGOT) 22 U/L (<=31); Alanine Aminotransfer ALT/SGPT 22 U/L (<=34); Alkaline Phosphatase 27 U/L (35-104); Anion Gap 13 (5-15); BUN 12 mg/dL (4-19); BUN/Creat Ratio 17.2 RATIO (10-20); Calcium,Total 9.2 mg/dL (7.6-11.0); Carbon Dioxide 22.9 mmol/L (21.0-32.0); Chloride 107 mmol/L (98-108); Cholesterol 212 mg/dL (<=200); EST Glomerular Filtration Rate 96 (>60); Globulin 3.3 g/dL (2.2-4.2); Glucose 104 mg/dL (70-99); High Density Lipoprotein 41 mg/dL; Low Density Lipoprotein Calc. 131 mg/dL; Potassium 3.7 mmol/L (3.3-5.1); Protein, Total 7.3 g/dL (5.9-8.4); Sodium Level 143 mmol/L (133-145); Total Bilirubin 0.21 mg/dL (0.00-1.30); Triglycerides 199 mg/dL; Very Low Density Lipoprotein 40 mg/dL (5-40); Vitamin D,25 Hydroxy 44.7 ng/mL (30-100); cholesterol:hdl ratio screen 5.17
== END | disposition home or self-care (01) ==
LOC: BIMLAB 13:51
PROVIDERS: PCP Family Medicine; Referring Provider Family Medicine; Visit Provider Family Medicine
DX: E03.9 Hypothyroidism, unspecified (principal); I10 Essential (primary) hypertension
CPT/HCPCS: 36415; 80053; 80061; 82306; 84443; 85025

== ENCOUNTER 2024-08-12 08:15 | Emergency (ER) | payer MEDICARE, BC, SELFPAY ==
[2024-08-12 08:15] VITALS: BP 145/88; PULSE 101; RESP 18; TEMP 36.9; O2SAT 99; BMI 35.5
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
--- NOTE | 2024-08-12 08:31 | RAD_ITS ---
PROCEDURE: PELVIS 08/12/2024 REASON FOR EXAM: RIGHT LEG PAIN TECHNIQUE: PELVIS ONE VIEW COMPARISON: None. FINDINGS: Bones: No obvious acute fracture. Diffuse osseous demineralization. The right lesser trochanter is poorly visualized, likely due to patient positioning. Joints: Severe right and moderate left hip joint arthrosis with osteosclerosis. Soft tissues: Soft tissues are unremarkable. RAD/HIP, UNI W/ Pelvis 2-3 Views IMPRESSION: DEGENERATIVE OSTEOARTHROSIS. NO ACUTE FINDINGS. Reading Location: [id number]
--- OUTSIDE RECORDS SUMMARY | 2024-08-12 08:40 | XMS RPT_ITS | CCD ---
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 Jazmyn Tristan on 08-02-2024 Glucose [Mass/Vol] 104 mg/dL High 70-99 [facility] Serum or plasma alanine chan otransferase (ALT) measurementOrdered By: Jazmyn Tristan on 08-02-2024 ALT [Catalytic activity/Vol] 22 U/L <35 [facility] Serum or plasma albumin page urement (mass/volume)Ordered By: Jazmyn Tristan on 08-02-2024 Albumin [Mass/Vol] 4.0 g/dL 3.4-4.8 [facility] Serum or plasma albumin/glob ulin mass ratioOrdered By: Jazmyn Tristan on 08-02-2024 Albumin/Globulin [Mass ratio] 1.2 {ratio} 0.9-2.4 [facility] Serum or plasma alkaline josselyn sphatase measurementOrdered By: Jazmyn Tristan on 08-02-2024 ALP [Catalytic activity/Vol] 27 U/L Low 35-104 [facility] Serum or plasma calcium page urement (mass/volume)Ordered By: Jazmyn Tristan on 08-02-2024 Calcium [Mass/Vol] 9.2 mg/dL 7.6-11.0 [facility] Serum or plasma cholesterol in HDL measurement (mass/volume)Ordered By: Jazmyn Tristan on 08-02-2024 Cholesterol in HDL [Mass/Vol] 41 mg/dL >40 [facility] Comment on above: National Cholesterol Education Program (NCEP) guidelines:<40 mg/dL: Low HDL-cholesterol (major risk factor for CHD)>= 60 mg/dL: High HDL-cholesterol (negative risk factor for CHD)HDL-cholesterol is affected by a number of factors, e.g. smoking, exercise, hormones, sex and age. Serum or plasma cholesterol measurement (mass/volume)Ordered By: Jazmyn Tristan on 08-02-2024 Cholesterol [Mass/Vol] 212 mg/dL High <201 [facility] Comment on above: Cholesterol level, D esirable <200 mg/dLBorderline high cholesterol 200-239 mg/dLHigh cholesterol >=240 mg/dLRecommendations of the NCEP Adult Treatment Panel for the following risk-cutoff thresholds for the [place] population. Serum or plasma urea nitroge n measurement (mass/volume)Ordered By: Jazmyn Tristan on 08-02-2024 Urea nitrogen [Mass/Vol] 12 mg/dL 4-19 [facility] Sodium levelOrdered By: Chidi Tristan on 08-02-2024 Sodium [Moles/Vol] 143 mmol/L 133-145 [facility] TSH DL <= 0.005 mIU/L QnOrde red By: Jazmyn Tristan on 08-02-2024 TSH Qn 4.160 uIU/mL 0.300-4.200 [facility] Thyroid Stim Hormone (TSH)on 08-02-2024 TSH 4.160 uIU/mL Normal 0.300-4.200 [facility] Comment on above: Order Comment: Order Date: 04/09/24 Order Info: [id number] - CMP Order Info: [id number] - LIPID Order Info: [id number] - TSH Performed By: #### L 500.4050, L500.4100, L501.9520, L100.0100 #### [facility] [address] [place], [address] Total proteinOrdered By: Lena Tristan on 08-02-2024 Protein [Mass/Vol] 7.3 g/dL 5.9-8.4 [facility] Triglycerides measurementOrd ered By: Jazmyn Tristan on 08-02-2024 Triglyceride [Mass/Vol] 199 mg/dL <199 [facility] Comment on above: The drugs N-Acetylcy steine and Metamizole may falsely depress this assay. Normal range: <150 mg/dLBorderline High: 150-199 mg/dLHigh: 200-499 mg/dLVery High: >500 mg/dL Vitamin D,25 Hydroxyon 08-02 Vitamin D 25-OH 44.7 ng/mL Normal 30-100 [facility] Comment on above: Order Comment: Order Date: 04/09/24 Order Info: [id number] - CMP Order Info: [id number] - LIPID Order Info: [id number] - TSH Result Comment: Zakia min D Status Deficiency: <20 ng/mL (50nmol/L) Insufficiency: 20-30 ng/mL (50-75 nmol/L) Sufficiency: 30-100 ng/mL (75-250 nmol/L) Toxicity: >100 ng/mL (>250 nmol/L) Performed By: #### L 506.1001 #### [facility] [address] [place], [place], [id number] White blood cell (WBC) count Ordered By: Jazmyn Tristan on 08-02-2024 WBC (Bld) [#/Vol] 6.9 10*3/uL 4.4-11.0 [facility] Extremity Lower without Cont raon 03-29-2024 Extremity Lower without Contra [facility] [address] [place], [place] [address] Extremity Lower without Contra MR#: [id number] Acct: [id number] Name: CHERIE CAMEJO Loy Rep #: [id number] : 1960 F 63 From: Victor Manuel Montero i, DO PCP: Care Physician,No Primary Status: REG CLI Study: Extremity Lower without Contra Date of Exam: 0 03/29/24 Exam# [id number] Ordering Dr: Rebecca Forde PROCEDURE: Noncontrast CT of the left foot/ankle. REASON FOR EXAM: Displaced fracture lateral tibial condyle. Left foot fracture for 3 months. TECHNIQUE: Contiguous unenhanced axial CT images were obtained through the left foot/ankle. Sagittal and coronal reformats were created. COMPARISON: None available FINDINGS: There is diffuse induration of the soft tissues and subcutaneous fat of the left foot/ankle. There are some scattered nonspecific calcifications of the subcutaneous fat left ankle. No discrete soft tissue mass or drainable fluid collection on the provided noncontrast images. The included distal tibia and fibula are intact. No displaced fracture of the left foot/ankle. The nonweightbearing alignment of the tarsal bones appears maintained. Mild degenerative changes of the interphalangeal and MTP joints. Moderate soft tissue swelling of the left foot. There is some cortical irregularity and peripheral lucency of the dorsal proximal 1st metatarsal. CT/Extremity Lower without Contra IMPRESSION: Osteopenia. There is some lucency and cortical irregularity of the dorsal proximal 1st metatarsal, which could represent an age-indeterminate nondisplaced fracture. No other findings suspicious for left foot fracture. If there are persistent pain or clinical concern, MRI evaluation may be helpful. Moderate soft tissue swelling and induration of the soft tissues/subcutaneous fat of the left foot, which could be due to cellulitis. One or more dose reduction techniques were used (e.g., Automated exposure control, adjustment of the mA and/or kV according to patient size, use of iterative reconstruction technique). Reading Location: BIA CC: KYLE Huff; No Primary Care Physician Category Development Manager: Signed Normal [facility] Inital Evaluation (1) - PTon 03-02-2024 Inital Evaluation (1) - PT [facility] Physical Therapy [facility] [address] [place] [address]. [address] [place] [address] / REHABILITATION SERVICES INITIAL EVALUATION MR#: [id number] Acct: [id number] Name: CHERIE CAMEJO Rep #: [id number] : 1960 63 From: Steven Tracey PT, Cert. T, OCS Referring Dr.: Dr. Flavio De La Rosa, DO Status: REG RCR Insurance: SELF INS [facility] ADV [id number] Patient's Visit Information Visit Information Visit Information: CHERIE CAMEJO is a 63 year old F referred to Physical Therapy by Dr. Flavio De La Rosa DO with a diagnosis of TEAR OF LATERAL MENISCUS TEAR LEFT KNEE D,ISPLACED FRACTURE LATERAL CONDYLE. Date of Evaluation: 03/01/24 Physical Therapist: Steven Tracey PT, Cert MDT, OCS Visit Plan Frequency: 2-3x /Week Duration: 6 Weeks Plan: *s/p Left lateral tibial plateau open reduction internal fixation , Left lateral meniscus repair * ON 12/26/23 PATIENT IS WBAT WITH FWW PT INTERVENTIONS ROM/FLEXABILITY KNEE ,STRENGTHENING QUAD/HAMS/HIP,GAIT TRAINING,BALANCE TRAINING ,FUNCTIONAL STRENGTHENING AND NUSTEP Subjective Subjective: This 63 y/o female presents to physical therapy with displaced fracture of lateral condyle of tibia and tear of lateral meniscus .Patient was hip by a car at work at [employer] knee thus underwent s/p Left lateral tibial plateau open reduction internal fixation ,Left lateral meniscus repair on 12/26/[address] De La Rosa at [facility] . Patient went to ER via ambulance and had imaging. Patient was d/c NWB LLE X 6 weeks with fww to [facility] 12/28/23 but transferred to [facility] for Rehab and d/c 02/14/24 with WBAT RLE with fww . Patient seen DR De La Rosa 02/[address] De La Rosa . Patient has pain lateral knee incision lateral along with edema . Patient denies paresthesia/tingling -. Patient lives 2 story home stays on 1t floor in recliner and unable to lay in supine .Patient has one low step. Patient walk in shower with seat. Patient is able to bath and dress. Brother assist as needed but limited. Daughter does shopping. Patient condition affects QOL and function/ADL's.Patie nt goal to return to normal. Medication: meloxicam SOCIAL: single VOCATION: [employer] Pain Left Knee: Pain Intensity (Out of 10): 4 Pain Intensity Range: 10 Objective Objective: POSTURE: mild forward posture hips/knees flexed GAIT: ambulates with fww slow benson decrease stance time with WBAT LLE BALANCE: fair+ with fww EDEMA: 44.3 CM PALAPTION: tender global knee AROM: supine knee flexion 0-90 degrees MMT: ( peak force) quads 13.5 ,hamstrings 14.7 ,hip flexion 22.9 ,hip abduction 12.7 Balance/Special Test Scores Lower Extremity Functional Score: 19 Goals Goal 1:: Patient to be I with HEP for knee Goal Time Frame: 6-8 Weeks Goal 2:: Patient to ambulate with/without cane community distance with improved gait pattern Goal Time Frame: 6-8 Weeks Goal 3:: Patient to improve AROM knee flexion by 0-105 degrees supine knee flexion to improve function to ascend descend stairs Goal Time Frame: 6-8 Weeks Goal 4:: Patient to improve peak force by 10# to improve function with gait and ADLS and RTW Goal Time Frame: 6-8 Weeks Goal 5:: Patient to improve improve LFES score by 5 -10 points to improve QOL and function Goal Time Frame: 6-8 Weeks Goal 6:: Patient to demonstrate 50% improvement with less pain and improve function with RTW Goal Time Frame: 6-8 Weeks Rehabilitation Potential Physical Therapy Diagnosis: This patient has had s/p Left lateral tibial plateau open reduction internal fixation , Left lateral meniscus repair with pain ,edema ,ROM ,weakness quads/hams decrease gait ,balance thus benefit from skilled Rehabilitation Potential: Good Anticipated Interventions Patient/Client Instruction: Educate patient on: Condition and Plan of Care For the Purpose of:: To decrease pain, To increase ROM, To improve muscle performance and motor function, To improve ability to perform ADL's, To increase tolerance to activity/condition/p osition, To improve performance and independence with ADL's, To improve ability of physical actions for home/community/work/ leisure, To improve gait and locomotor functions, To improve health of tissue, To decrease soft tissue restriction, To increase flexibility/ROM, To improve endurance, To improve balance and To improve tolerance to ADL's Therapeutic Exercise to Include: Strength training, Endurance training, Balance training, Flexibilty training, Gait and locomotor training, Passive ROM and Active ROM Comment: QUADS/HAMS/HIP For the Purpose of:: To decrease pain, To increase ROM, To improve muscle performance and motor function, To improve ability to perform ADL's, To increase tolerance to activity/condition/p osition, To improve ability of physical actions for home/community/work/ leisure, To improve gait and locomotor functions, To improve hea (more content not included)... Normal [facility] Magnesiumon 01-31-2024 Magnesium [Mass/Vol] 1.9 mg/dL Normal 1.6-2.6 [facility] Comment on above: Order Comment: PILAR Bowman ADD MAG TO 01/30/24 BLOOD WORK Performed By: #### L 300.3900, L100.0100, L300.4310 #### [facility] [address] [place], [address] Basic Metabolic Profile (BMP )on 01-30-2024 BUN/CRE 26.9 RATIO High 10-20 [facility] Comment on above: Order Comment: 106 Performed By: #### L 300.3900, L100.0100, L300.4310 #### [facility] [address] [place], [address] CA,Total 9.4 mg/dL Normal 8.5-10.1 [facility] Comment on above: Order Comment: 106 Performed By: #### L 300.3900, L100.0100, L300.4310 #### [facility] [address] [place], [address] Chloride [Moles/Vol] 110 mmol/L High 98-107 [facility] Comment on above: Order Comment: 106 Performed By: #### L 300.3900, L100.0100, L300.4310 #### [facility] [address] [place], [address] CO2 [Moles/Vol] 25.0 mmol/L Normal 21.0-32.0 [facility] Comment on above: Order Comment: 106 Performed By: #### L 300.3900, L100.0100, L300.4310 #### [facility] [address] [place], [address] Creatinine [Mass/Vol] 0.71 mg/dL Normal 0.55-1.02 [facility] Comment on above: Order Comment: 106 Result Comment: The validity of the calculated GFR GFRAA in patients over 70 years has not been determined. Clinical correlation is essential. Performed By: #### L 300.3900, L100.0100, L300.4310 #### [facility] [address] [place], [address] EST GFR - AA 107 mL/min Normal >60 [facility] Comment on above: Order Comment: 106 Result Comment: Afri can Turk[place] GFR Calc Performed By: #### L 300.3900, L100.0100, L300.4310 #### [facility] [address] [place], [address] GAP 7 Normal 5-15 [facility] Comment on above: Order Comment: 106 Performed By: #### L 300.3900, L100.0100, L300.4310 #### [facility] [address] [place], [address] GFR/1.73 sq M.predicted among non-blacks MDRD (S/P/Bld) [Vol rate/Area] 88 mL/min/{1.73_m2} Normal >60 [facility] Comment on above: Order Comment: 106 Result Comment: Non- GFR Calc Performed By: #### L 300.3900, L100.0100, L300.4310 #### [facility] [address] [place], [address] Glucose [Mass/Vol] 115 mg/dL High 74-106 [facility] Comment on above: Order Comment: 106 Result Comment: Fast ing Glucose result from 100 to 125 mg/dL suggests IMPAIRED HOMEOSTASIS per A.D.A. criteria. Performed By: #### L 300.3900, L100.0100, L300.4310 #### [facility] [address] [place], [address] Potassium [Moles/Vol] 3.5 mmol/L Normal 3.5-5.1 [facility] Comment on above: Order Comment: 106 Performed By: #### L 300.3900, L100.0100, L300.4310 #### [facility] [address] [place], [address] Sodium [Moles/Vol] 142 mmol/L Normal 136-145 [facility] Comment on above: Order Comment: 106 Performed By: #### L 300.3900, L100.0100, L300.4310 #### [facility] [address] [place], [address] Urea nitrogen [Mass/Vol] 19 mg/dL High 7-18 [facility] Comment on above: Order Comment: 106 Performed By: #### L 300.3900, L100.0100, L300.4310 #### [facility] [address] [place], [address] CBC W/Diff, Automatedon 12-0 -2023 Absolute Lymph 1.62 X10 3/uL Normal 0.83-4.51 [facility] Comment on above: Order Comment: 106 Performed By: #### L 300.3900, L100.0100, L300.4310 #### [facility] [address] [place], [address] Absolute Neut 3.2 X10 3/uL Normal 2.0-7.7 [facility] Comment on above: Order Comment: 106 Performed By: #### L 300.3900, L100.0100, L300.4310 #### [facility] [address] [place], [address] Basophils/100 WBC (Bld) 0.4 % Normal 0-1 [facility] Comment on above: Order Comment: 106 Performed By: #### L 300.3900, L100.0100, L300.4310 #### [facility] [address] [place], [address] Eosinophils/100 WBC (Bld) 3.6 % Normal 0-5 [facility] Comment on above: Order Comment: 106 Performed By: #### L 300.3900, L100.0100, L300.4310 #### [facility] [address] [place], [address] Erythrocyte distribution width (RBC) [Ratio] 14.6 % Normal 11.6-14.6 [facility] Comment on above: Order Comment: 106 Performed By: #### L 300.3900, L100.0100, L300.4310 #### [facility] [address] [place], [address] Hematocrit (Bld) [Volume fraction] 34.7 % Low 37-47 [facility] Comment on above: Order Comment: 106 Performed By: #### L 300.3900, L100.0100, L300.4310 #### [facility] [address] [place], [address] Hemoglobin (Bld) [Mass/Vol] 11.1 g/dL Low 12.0-15.0 [facility] Comment on above: Order Comment: 106 Performed By: #### L 300.3900, L100.0100, L300.4310 #### [facility] [address] [place], [address] IG% 0.200 Normal 0.0-0.9 [facility] Comment on above: Order Comment: 106 Result Comment: IG% - Immature Granulocytes (promyelocytes, myelocytes and metamyelocytes) > 1% indicates that a LEFT SHIFT is Present. Performed By: #### L 300.3900, L100.0100, L300.4310 #### [facility] [address] [place], [address] Lymphocytes/100 WBC (Bld) 30.5 % Normal 19-41 [facility] Comment on above: Order Comment: 106 Performed By: #### L 300.3900, L100.0100, L300.4310 #### [facility] [address] [place], [address] MCH (RBC) [Entitic mass] 28.5 pg Normal 27.0-32.0 [facility] Comment on above: Order Comment: 106 Performed By: #### L 300.3900, L100.0100, L300.4310 #### [facility] [address] [place], [address] MCHC (RBC) [Mass/Vol] 32.0 g/dL Normal 32-36 [facility] Comment on above: Order Comment: 106 Performed By: #### L 300.3900, L100.0100, L300.4310 #### [facility] [address] [place], [address] MCV (RBC) [Entitic vol] 89.0 fL Normal 81-[address] [facility] Comment on above: Order Comment: 106 Performed By: #### L 300.3900, L100.0100, L300.4310 #### [facility] [address] [place], [address] Monocytes/100 WBC (Bld) 5.5 % Normal 0-[address] [facility] Comment on above: Order Comment: 106 Performed By: #### L 300.3900, L100.0100, L300.4310 #### [facility] [address] [place], [address] Neutrophils/100 WBC (Bld) 59.8 % Normal 47-70 [facility] Comment on above: Order Comment: 106 Performed By: #### L 300.3900, L100.0100, L300.4310 #### [facility] [address] [place], [address] Nucleated RBC (Bld) [#/Vol] 0 10*3/uL Normal 0-5 [facility] Comment on above: Order Comment: 106 Performed By: #### L 300.3900, L100.0100, L300.4310 #### [facility] [address] [place], [address] Platelet mean volume (Bld) [Entitic vol] 9.9 fL Normal 6.2-12.0 [facility] Comment on above: Order Comment: 106 Performed By: #### L 300.3900, L100.0100, L300.4310 #### [facility] [address] [place], [address] Platelets (Bld) [#/Vol] 174 10*3/uL Normal 150-450 [facility] Comment on above: Order Comment: 106 Performed By: #### L 300.3900, L100.0100, L300.4310 #### [facility] [address] [place], [address] RBC (Bld) [#/Vol] 3.90 10*6/uL Low 4.2-5.4 [facility] Comment on above: Order Comment: 106 Performed By: #### L 300.3900, L100.0100, L300.4310 #### [facility] [address] [place], [address] RDW SD 46.5 fl High 35.1-43.9 [facility] Comment on above: Order Comment: 106 Performed By: #### L 300.3900, L100.0100, L300.4310 #### [facility] [address] [place], [address] WBC (Bld) [#/Vol] 5.3 10*3/uL Normal 4.4-11.0 [facility] Comment on above: Order Comment: 106 Performed By: #### L 300.3900, L100.0100, L300.4310 #### [facility] [address] [place], [address] Basic Metabolic Profile (BMP )on 01-24-2024 BUN/CRE 27.7 RATIO High 10-20 [facility] Comment on above: Order Comment: 106.1 Performed By: #### L 300.3900, L100.0100, L300.4310 #### [facility] [address] [place], [address] CA,Total 9.1 mg/dL Normal 8.5-10.1 [facility] Comment on above: Order Comment: 106.1 Performed By: #### L 300.3900, L100.0100, L300.4310 #### [facility] [address] [place], [address] Chloride [Moles/Vol] 113 mmol/L High 98-107 [facility] Comment on above: Order Comment: 106.1 Performed By: #### L 300.3900, L100.0100, L300.4310 #### [facility] [address] [place], [address] CO2 [Moles/Vol] 26.0 mmol/L Normal 21.0-32.0 [facility] Comment on above: Order Comment: 106.1 Performed By: #### L 300.3900, L100.0100, L300.4310 #### [facility] [address] [place], [address] Creatinine [Mass/Vol] 0.61 mg/dL Normal 0.55-1.02 [facility] Comment on above: Order Comment: 106.1 Result Comment: The validity of the calculated GFR GFRAA in patients over 70 years has not been determined. Clinical correlation is essential. Performed By: #### L 300.3900, L100.0100, L300.4310 #### [facility] [address] [place], [address] EST GFR - AA 126 mL/min Normal >60 [facility] Comment on above: Order Comment: 106.1 Result Comment: Afri can Turk[place] GFR Calc Performed By: #### L 300.3900, L100.0100, L300.4310 #### [facility] [address] [place], [address] GAP 6 Normal 5-15 [facility] Comment on above: Order Comment: 106.1 Performed By: #### L 300.3900, L100.0100, L300.4310 #### [facility] [address] [place], [address] GFR/1.73 sq M.predicted among non-blacks MDRD (S/P/Bld) [Vol rate/Area] 104 mL/min/{1.73_m2} Normal >60 [facility] Comment on above: Order Comment: 106.1 Result Comment: Non- GFR Calc Performed By: #### L 300.3900, L100.0100, L300.4310 #### [facility] [address] [place], [address] Glucose [Mass/Vol] 98 mg/dL Normal 74-106 [facility] Comment on above: Order Comment: 106.1 Performed By: #### L 300.3900, L100.0100, L300.4310 #### [facility] [address] [place], [address] Potassium [Moles/Vol] 3.8 mmol/L Normal 3.5-5.1 [facility] Comment on above: Order Comment: 106.1 Performed By: #### L 300.3900, L100.0100, L300.4310 #### [facility] [address] [place], [address] Sodium [Moles/Vol] 144 mmol/L Normal 136-145 [facility] Comment on above: Order Comment: 106.1 Performed By: #### L 300.3900, L100.0100, L300.4310 #### [facility] [address] [place], [address] Urea nitrogen [Mass/Vol] 17 mg/dL Normal 7-18 [facility] Comment on above: Order Comment: 106.1 Performed By: #### L 300.3900, L100.0100, L300.4310 #### [facility] [address] [place], [address] CBC-Complete Blood Cnt No Di ffon 01-24-2024 Erythrocyte distribution width (RBC) [Ratio] 14.5 % Normal 11.6-14.6 [facility] Comment on above: Order Comment: 106.1 Performed By: #### L 300.3900, L100.0100, L300.4310 #### [facility] [address] [place], [address] Hematocrit (Bld) [Volume fraction] 33.7 % Low 37-47 [facility] Comment on above: Order Comment: 106.1 Performed By: #### L 300.3900, L100.0100, L300.4310 #### [facility] [address] [place], [address] Hemoglobin (Bld) [Mass/Vol] 11.1 g/dL Low 12.0-15.0 [facility] Comment on above: Order Comment: 106.1 Performed By: #### L 300.3900, L100.0100, L300.4310 #### [facility] [address] [place], [address] MCH (RBC) [Entitic mass] 29.2 pg Normal 27.0-32.0 [facility] Comment on above: Order Comment: 106.1 Performed By: #### L 300.3900, L100.0100, L300.4310 #### [facility] [address] [place], [address] MCHC (RBC) [Mass/Vol] 32.9 g/dL Normal 32-36 [facility] Comment on above: Order Comment: 106.1 Performed By: #### L 300.3900, L100.0100, L300.4310 #### [facility] [address] [place], [address] MCV (RBC) [Entitic vol] 88.7 fL Normal 81-99 [facility] Comment on above: Order Comment: 106.1 Performed By: #### L 300.3900, L100.0100, L300.4310 #### [facility] [address] [place], [address] Platelet mean volume (Bld) [Entitic vol] 9.8 fL Normal 6.2-12.0 [facility] Comment on above: Order Comment: 106.1 Performed By: #### L 300.3900, L100.0100, L300.4310 #### [facility] [address] [place], [address] Platelets (Bld) [#/Vol] 171 10*3/uL Normal 150-450 [facility] Comment on above: Order Comment: 106.1 Performed By: #### L 300.3900, L100.0100, L300.4310 #### [facility] [address] [place], [address] RBC (Bld) [#/Vol] 3.80 10*6/uL Low 4.2-5.4 [facility] Comment on above: Order Comment: 106.1 Performed By: #### L 300.3900, L100.0100, L300.4310 #### [facility] [address] [place], [address] RDW SD 46.3 fl High 35.1-43.9 [facility] Comment on above: Order Comment: 106.1 Performed By: #### L 300.3900, L100.0100, L300.4310 #### [facility] [address] [place], [address] WBC (Bld) [#/Vol] 5.2 10*3/uL Normal 4.4-11.0 [facility] Comment on above: Order Comment: 106.1 Performed By: #### L 300.3900, L100.0100, L300.4310 #### [facility] [address] [place], [address] Magnesiumon 01-24-2024 Magnesium [Mass/Vol] 2.2 mg/dL Normal 1.6-2.6 [facility] Comment on above: Order Comment: 106.1 Performed By: #### L 300.3900, L100.0100, L300.4310 #### [facility] [address] [place], [address] Basic Metabolic Profile (BMP )on 01-18-2024 BUN/CRE 28.0 RATIO High 10-20 [facility] Comment on above: Order Comment: 106 Performed By: #### L 300.3900, L100.0100, L300.4310 #### [facility] [address] [place], [address] CA,Total 9.3 mg/dL Normal 8.5-10.1 [facility] Comment on above: Order Comment: 106 Performed By: #### L 300.3900, L100.0100, L300.4310 #### [facility] [address] [place], [address] Chloride [Moles/Vol] 111 mmol/L High 98-107 [facility] Comment on above: Order Comment: 106 Performed By: #### L 300.3900, L100.0100, L300.4310 #### [facility] [address] [place], [address] CO2 [Moles/Vol] 27.0 mmol/L Normal 21.0-32.0 [facility] Comment on above: Order Comment: 106 Performed By: #### L 300.3900, L100.0100, L300.4310 #### [facility] [address] [place], [address] Creatinine [Mass/Vol] 0.68 mg/dL Normal 0.55-1.02 [facility] Comment on above: Order Comment: 106 Result Comment: The validity of the calculated GFR GFRAA in patients over 70 years has not been determined. Clinical correlation is essential. Performed By: #### L 300.3900, L100.0100, L300.4310 #### [facility] [address] [place], [address] EST GFR - AA 112 mL/min Normal >60 [facility] Comment on above: Order Comment: 106 Result Comment: Afri can Turkmen GFR Calc Performed By: #### L 300.3900, L100.0100, L300.4310 #### [facility] [address] [place], [address] GAP 5 Normal 5-15 [facility] Comment on above: Order Comment: 106 Performed By: #### L 300.3900, L100.0100, L300.4310 #### [facility] [address] [place], [address] GFR/1.73 sq M.predicted among non-blacks MDRD (S/P/Bld) [Vol rate/Area] 92 mL/min/{1.73_m2} Normal >60 [facility] Comment on above: Order Comment: 106 Result Comment: Non- GFR Calc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
[2024-08-12] MEDS: Ibuprofen 200 MG Tablet 400 MG PO (09:10)
[2024-08-12 09:43] VITALS: BP 138/78; PULSE 78; RESP 14; TEMP 37.1; O2SAT 99
== END 2024-08-12 09:44 | disposition home or self-care (01) ==
PROVIDERS: Emergency Provider Emergency Medicine; PCP Family Medicine; Visit Provider Emergency Medicine
DX: S80.11XA Contusion of right lower leg, initial encounter (principal); M16.11 Unilateral primary osteoarthritis, right hip; X58.XXXA Exposure to other specified factors, initial encounter
CPT/HCPCS: 73502; 73552; 99282

== ENCOUNTER → 2024-09-19 | Outpatient (CLI) | payer BC, MEDICARE, SELFPAY ==
--- NOTE | 2024-09-19 14:57 | ECHOD_ITS ---
Reason For Study Reason For Study: Edema Procedure This was a 2D Doppler, Color Flow transthoracic echocardiogram. Exam performed in department. Left Ventricle Normal LV size. The left ventricular ejection fraction is 55 %. Stage 1 diastolic dysfunction. No regional wall motion abnormalities noted. Right Ventricle Normal RV size. The right ventricle is normal in size, function, and thickness. Atria Normal left atrium. Normal right atrium. Mitral Valve Normal mitral valve. Tricuspid Valve Normal tricuspid valve. Mild (1+) tricuspid valve insufficiency. Pulmonary artery systolic pressure is 23 mmHg. Aortic Valve Trisinus/trileaflet aortic valve. Pulmonic Valve Normal pulmonic valve. Great Vessels Normal aortic root. The pulmonary artery is normal size. Inferior vena cava collapse with respiration. Pericardium/Pleural No pericardial effusion. MMode/2D Measurements & Calculations LVIDd: 4.2 cm IVSd: 1.2 cm Ao root diam: 2.9 cm LVIDs: 2.7 cm LVPWd: 0.90 cm RVDd: 3.9 cm FS: 35.6 % LAV(MOD-bp): 29.6 ml LVAd ap4: 25.4 cm2 SV(MOD-sp4): 42.6 ml LAV(MOD-bp) Indexed: 17.0 ml/m2 LVLd ap4: 7.6 cm SI(MOD-sp4): 24.5 ml/m2 LAV(MOD-sp2): 30.1 ml EDV(MOD-sp4): 68.9 ml LAV(MOD-sp4): 24.7 ml EDV(sp4-el): 72.0 ml LVAs ap4: 13.3 cm2 LVLs ap4: 6.1 cm ESV(MOD-sp4): 26.3 ml ESV(sp4-el): 24.8 ml EF(MOD-sp4): 61.8 % EF(sp4-el): 65.6 % SV(sp4-el): 47.2 ml LA A4 area: 12.2 cm2 LA dimension(2D): 3.4 cm RA A4 area: 13.1 cm2 TAPSE: 2.0 cm Time Measurements MV dec time: 0.15 sec Doppler Measurements & Calculations MV E max rian: 69.9 cm/sec Lat Peak E' Rian: 9.9 cm/sec Med Peak E' Rian: 8.1 cm/sec MV A max rian: 84.6 cm/sec E/E' lat: 7.1 E/E' med: 8.7 MV E/A: 0.83 MV V2 max: 101.9 cm/sec MV P1/2t max rian: 72.5 cm/sec Ao V2 max: 109.9 cm/sec MV max P.2 mmHg MV P1/2t: 49.5 msec Ao max P.8 mmHg MV V2 mean: 52.9 cm/sec Ao V2 mean: 80.4 cm/sec MV mean P.3 mmHg MV dec slope: 429.1 cm/sec2 Ao mean P.9 mmHg MV V2 VTI: 19.8 cm MVA(P1/2t): 4.4 cm2 Ao V2 VTI: 25.2 cm AV (velocity ratio): 0.94 LV V1 max: 101.9 cm/sec PA V2 max: 83.3 cm/sec TR max rian: 226.0 cm/sec LV V1 max P.2 mmHg TR max P.4 mmHg LV V1 mean P.3 mmHg LV V1 mean: 70.9 cm/sec LV V1 VTI: 23.6 cm ECHO/Echo Complete Interpretation Summary Normal LV size. The left ventricular ejection fraction is 55 %. Mild (1+) tricuspid valve insufficiency. Stage 1 diastolic dysfunction. Pulmonary artery systolic pressure is 23 mmHg. Ordering Physician: Jazmyn Tristan Referring Physician: Jazmyn Tristan Performed By: Leighton Jacinto RCS
== END | disposition home or self-care (01) ==
LOC: CVS 14:54
PROVIDERS: PCP Family Medicine; Referring Provider Family Medicine; Visit Provider Family Medicine
DX: R60.9 Edema, unspecified (principal)
CPT/HCPCS: 93306

== ENCOUNTER → 2024-11-15 | Outpatient (CLI) | payer BC, MEDICARE, SELFPAY | END | disposition home or self-care (01) | LOC: MFPLAB 14:02 | PROVIDERS: PCP Family Medicine; Visit Provider Family Medicine | DX: E03.9 Hypothyroidism, unspecified (principal) | CPT/HCPCS: 36415; 84443 ==

== ENCOUNTER 2025-01-16 08:00 | Outpatient (RCR) | payer OTHER, MEDICARE, BC, SELFPAY ==
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
--- NOTE | 2024-09-19 11:26 | HP.PTREVAL ---
Re-Evaluation Intro: Dr. Flavio De La Rosa, DO, It has been my pleasure to treat CHERIE CAMEJO over the last 65 visits for TEAR OF LATERAL MENISCUS TEAR LEFT KNEE D,ISPLACED FRACTURE LATERAL CONDYLE. Please see the progress note below for an update on the physical therapy plan of care! Subjective Subjective: Pt. reports overall doing well. "Its a good day." Pt. reports 5/10 pain in knee, ankle and R shoulder. Pt. reports having difficulty with sleeping due to her R shoulder pain. Objective Objective/Function: ROM: L knee AROM: 0-0-110deg, PROM 0-0-114deg. MMT: previous MMT: ( peak force) quads 28.1 ,hamstrings 26.1 ,hip flexion 22.9 ,hip abduction 19.9 CURENT: RLE: hip: flexion 34.4#, abd 22.4#; knee: ext 30.4#, flex 32.5# LLE: hip: flexion 25.3#, abd 19.3#; knee: Ext 24.9#, flex 19.55 GAIT: Pt. ambulates with SPC. Pt. has increased wt. shift to L side during L stance phase. TUG with SPC: 19.19 sec TUG without AD 28.02 sec Pt. reports that she still improve on what she is doing. Pt. is having some swelling. She is having an echo today as well. Pt. has improved with her swelling, and ROM. Less so with her strength. Plan Plan Plan: I am asking for further visits to work on strength, functional mobility, gait and strength. Balance/Gait/Functional tests Balance/Special Test Scores Lower Extremity Functional Score: 31 Goals Goals Goal 1:: Patient to be I with HEP for knee Goal Time Frame: 6-8 Weeks Goal Progress: Progressing Goal 2:: Patient to ambulate with/without cane community distance with improved gait pattern Goal Time Frame: 6-8 Weeks Goal Progress: Goal Met Goal 3:: Patient to improve AROM knee flexion by 0-115 degrees supine knee flexion to improve function to ascend descend stairs( new goal) Goal Time Frame: 6-8 Weeks Goal Progress: Progressing Goal 4:: Patient to improve peak force by 10# to improve function with gait and ADLS and RTW Goal Time Frame: 6-8 Weeks Goal Progress: Progressing Goal 5:: Patient to improve improve LFES score by 5 -10 points to improve QOL and function Goal Time Frame: 6-8 Weeks Goal Progress: Progressing Goal 6:: Patient to demonstrate 50% improvement with less pain and improve function with RTW Goal Time Frame: 6-8 Weeks Goal Progress: Progressing Anticipated Interventions Anticipated Interventions Patient/Client Instruction: Educate patient on: Condition and Plan of Care For the Purpose of:: To decrease pain, To increase ROM, To improve muscle performance and motor function, To improve ability to perform ADL's, To increase tolerance to activity/condition/position, To improve performance and independence with ADL's, To improve ability of physical actions for home/community/work/leisure, To improve gait and locomotor functions, To improve health of tissue, To decrease soft tissue restriction, To increase flexibility/ROM, To improve endurance, To improve balance and To improve tolerance to ADL's Therapeutic Exercise to Include: Strength training, Endurance training, Balance training, Flexibilty training, Gait and locomotor training, Passive ROM and Active ROM Comment: QUADS/HAMS/HIP For the Purpose of:: To decrease pain, To increase ROM, To improve muscle performance and motor function, To improve ability to perform ADL's, To increase tolerance to activity/condition/position, To improve ability of physical actions for home/community/work/leisure, To improve gait and locomotor functions, To improve health of tissue, To decrease soft tissue restriction, To increase flexibility/ROM, To improve balance, To reduce risk of recurrence and To improve tolerance to ADL's TENS: Yes IF ES: Yes Thermo therapy (hot pack): Yes Ultrasound (thermal/non thermal): Yes Vasopneumatic device: Yes For the Purpose of:: To decrease pain, To increase ROM, To improve health of tissue and To decrease soft tissue restriction Re-Evaluation Ending Re-evaluation ending: Please do not hesitate to contact me at [phone] by phone or if you have questions or concerns regarding this new plan of care! Sincerely, Henry Romano DPT
--- NOTE | 2025-01-16 08:24 | HP.PTDCSUM_ITS ---
Discharge Summary D/C summary: It has been my pleasure to treat CHERIE CAMEJO referred by Dr. Flavio De La Rosa DO, with the diagnosis of TEAR OF LATERAL MENISCUS TEAR LEFT KNEE D,ISPLACED FRACTURE LATERAL CONDYLE for a total of 99 visit(s). Discharge Date: 01/16/25 Please see the following information for a summary of their discharge status. Subjective Subjective: Patient doing okay swelling less today did not work Min pain today Usually swelling worse when work 2 8 hour shift in a row Uses cane for long distances Pain Left Knee: Pain Intensity (Out of 10): 2 L foot: Pain Intensity (Out of 10): 2 R shoulder: Pain Intensity (Out of 10): 0 Right Hip: Pain Intensity (Out of 10): 0 Overall Improvement % Improvement: 60 Objective Objective/Function: ROM: L knee AROM: 0-0-125 degrees LLE: hip: flexion 39.2#, abd 29.1#; knee: Ext 45.9#, flex 27.8 GAIT: Pt. ambulates with straight cane.,improved swing phase ,and slight decrease stance time TUG with SPC: 18.16 sec TUG without AD 22.02 sec Goals Goal 1:: Patient to be I with HEP for knee Goal Progress: Progressing Goal 2:: Patient to ambulate with/without cane community distance with improved gait pattern Goal Progress: Progressing Goal 3:: Patient to improve AROM knee flexion by 0-115 degrees supine knee flexion to improve function to ascend descend stairs( new goal) Goal Progress: Progressing Goal 4:: Patient to improve peak force by 10# to improve function with gait and ADLS and RTW Goal Progress: Progressing Goal 5:: Patient to improve improve LFES score by 5 -10 points to improve QOL and function Goal Progress: Progressing Goal 6:: Patient to demonstrate 50% improvement with less pain and improve func tion with RTW Goal Progress: Progressing Plan Plan: D/C TO [facility] D/C Information Discharge Comments: [facility] d/c sentence: If there are questions or concerns regarding this patient's physical therapy, please feel free to call me at [phone]. Thank you for the referral of this patient. Sincerely, Steven Tracey, PT, Cert MDT, OCS Balance/Gait/Functional tests Balance/Special Test Scores Lower Extremity Functional Score: 46 Improvement % Improvement: 60
== END 2025-01-16 19:00 | disposition home or self-care (01) ==
LOC: PT 08:00
PROVIDERS: Referring Provider Student in an Organized Health Care Education/Training Program; Visit Provider Student in an Organized Health Care Education/Training Program
DX: S82.142D Displaced bicondylar fracture of left tibia, subsequent encounter for closed fracture with routine healing (principal); S83.282D Other tear of lateral meniscus, current injury, left knee, subsequent encounter; R26.81 Unsteadiness on feet; S82.122D Displaced fracture of lateral condyle of left tibia, subsequent encounter for closed fracture with routine healing
CPT/HCPCS: 97016; 97110; 97116; 97162; 97530